=== PATIENT | male | born 1945 | race Caucasian/White ===

== ENCOUNTER 2021-07-19 09:23 | Day surgery (SDC) | payer OTHER ==
--- NOTE | 2021-07-15 09:52 | RAD REPORT ---
EXAM DESCRIPTION: Janett Reddy (2 Views)07/15/2021 9:44 am CLINICAL HISTORY: Preop for leg surgery COMPARISON: 2009 FINDINGS: The lungs are mildly hyperaerated. The lungs appear clear of acute infiltrate. The heart is normal size IMPRESSION: No acute abnormalities displayed
[2021-07-15 10:02] LABS: Potassium 3.8 mmol/L (3.5-5.1)
[2021-07-15 10:12] LABS: Absolute Lymphocytes (CBC) 2.2 K/uL (0.7-4.9); Hematocrit 46.5 % (39.6-49.0); Lymphocytes % 29.8 % (15.3-44.8); MPV 7.6 fL (7.6-11.3); RBC Red Blood Cell Count 5.14 M/uL (4.33-5.43)
[2021-07-19] MEDS ORDERED: Ringers Lactate 1,000 ML IV ONE (09:30)
[2021-07-19] MEDS ORDERED: CEFAZOLIN/NS 1gm 1 GM/50 ML BAG ONE (09:31)
[2021-07-19 10:07] VITALS: O2SAT 100
[2021-07-19] MEDS ORDERED: ACETAMINOPHEN 500 MG TAB ONE (11:04)
[2021-07-19] MEDS ORDERED: CELECOXIB 100 MG CAPSULE ONE (11:04)
[2021-07-19] MEDS ORDERED: LIDOCAINE 1% 20 ML MDV ONE (11:31)
[2021-07-19] MEDS ORDERED: BUPIVACAINE 0.5% PF 10 ML VIAL ONE (11:31)
[2021-07-19] MEDS ORDERED: FENTANYL CITR 100 MCG/2 ML ONE (11:37)
[2021-07-19] MEDS ORDERED: LIDOCAINE 2% MPF 5 ML VIAL ONE (11:37)
[2021-07-19] MEDS ORDERED: propofoL 200 MG/20 ML VIAL IV ONE (11:37)
[2021-07-19] MEDS ORDERED: MIDAZOLAM HCL 2 MG/2 ML INJ ONE (11:37)
[2021-07-19 13:47] VITALS: BP 116/76; TEMP 97.1
[2021-07-19] MEDS ORDERED: CODEINE 30MG/APAP 300MG TAB ONE (14:00)
--- NOTE | 2021-07-19 16:43 | OP ---
Date of Procedure: 07/19/2021 Surgeon: Tray Caban MD Pitch Worker: STACY Levin Preoperative Diagnosis: Left thigh mass. Postoperative Diagnosis: Left thigh mass. Procedure: Wide excision of left thigh mass 6 x 3 cm with layered closure. Estimated Blood Loss: Minimal. Specimen: Left thigh mass and frozen section. Findings: Benign cyst. Anesthesia: MAC. Complications: None. Disposition: The patient tolerated the procedure in stable condition and taken to Recovery in good g eneral condition. Procedure In Detail: The patient was brought to the OR and placed in supine position. General anest hesia begun. The patient was prepped and draped in the usual sterile fashion. Lidocaine 1% infiltra sherrill locally. A 15-blade was used to make a 6 x 3 cm incision to excise this approximately 2.5 cm ellison sed mass with normal visible borders. Subcutaneous tissue divided and deep to the subcutaneous tissu e, all of the mass excised and sent to Pathology as specimen. Frozen section revealed it to be a ryan ign cyst. Wound irrigated. Bleeding controlled with cautery and then flaps created and 2-0 chromic used to approximate subcutaneous tissue and 4-0 nylon used to close the skin. Sterile dressing appli ed. The patient was awakened and taken to Recovery in good general condition. Discharge Note: The patient will go to Day Surgery and home when stable. Disposition: Home. Condition: Stable. Discharge Instructions: Resume home medications and diet. Activity as tolerated. Remove outer dres sing in 2 days. Shower. Neosporin and Band-Aid to the wound or dry gauze to the wound. Tylenol No. 3 one tablet p.o. q.4 p.r.n. pain. Follow up in my office in 10 days. Call for appointment. /MODL Voice ID: [id number] Report ID: [id number]
== END 2021-07-19 14:05 | disposition home or self-care (01) ==
LOC: OR 09:23
PROVIDERS: ATTEND Surgery
PROC: 0JBM0ZZ Excision of Left Upper Leg Subcutaneous Tissue and Fascia, Open Approach (ICD-10-PCS; principal; 2021-07-19 11:00)
DX: L72.0 Epidermal cyst (principal)
CPT/HCPCS: 93005; 85025; 80048; 36415; 88331; 88332; 88304; 71046; 11406; J2704; J2250; J3010; J0690; J7120; 88305